=== PATIENT | male | born 1990 | race Caucasian/White ===

== ENCOUNTER → 2021-09-13 | Outpatient (CLI) | payer OTHER ==
[~2021-09-13] MED LIST: CYCLOBENZAPRINE5 M3 PO; LOMOTIL 0.025 M1 TA1 PO; NAPROSYN500 MG PO; NORVASC5 MG PO; ULTRAM50 MG PO; ZOFRAN4 MG PO
[2021-09-13 08:57] LABS: BASO # 0.1 10*3/uL (0.0-0.1); BASO % 1.1 % (0.0-1.0); EOS # 0.5 10*3/uL (0.0-0.4); EOS % 6.9 % (1.0-4.0); HEMATOCRIT 45.8 % (42.0-52.0); LYMPH # 2.2 10*3/uL (1.3-4.4); LYMPH % 33.5 % (27.0-41.0); MEAN CELL VOLUME 88.2 fl (80.0-94.0); MEAN CORPUSCULAR HGB 30.1 pg (27.0-31.0); MEAN CORPUSCULAR HGB CONC 34.1 g/dl (33.0-37.0); MEAN PLATELET VOLUME 9.1 fl (9.6-12.3); MONO # 0.6 10*3/uL (0.1-1.0); MONO % 9.5 % (3.0-9.0); NEUT # 3.2 10*3/uL (2.3-7.9); NEUT % 48.8 % (47.0-73.0); PLATELET COUNT AUTOMATED 281 10*3/uL (130-400); RED BLOOD COUNT 5.19 10*6/uL (4.50-5.90); RED CELL DISTRI WIDTH 11.9 % (0-14.5); WHITE BLOOD COUNT 6.6 10*3/uL (4.8-10.8)
[2021-09-13 09:15] LABS: ALBUMIN 4.1 gm/dl (3.1-4.5); ALKALINE PHOSPHATASE 62 U/L (45-117); BUN 11 mg/dl (7-24); CHLORIDE 109 mmol/L (98-107); CHOLESTEROL 141 mg/dL (<200); LDL CHOLESTEROL 98 mg/dL (9-159); POTASSIUM 4.2 mmol/L (3.5-5.1); SGOT/AST 31 IU/L (3-35); SGPT/ALT 57 U/L (12-78); SODIUM 140 mmol/L (136-145); TOTAL PROTEIN 7.8 gm/dL (6.4-8.2); TRIGLYCERIDES 53 mg/dl (<150)
== END ==
LOC: LAB 08:24
PROVIDERS: ATTEND Nurse Practitioner Primary Care
DX: I10 Essential (primary) hypertension (principal)

== ENCOUNTER 2024-03-04 11:06 | Emergency (ER) | payer OTHER ==
[~2024-03-04] VITALS: Ht 190.5 cm; Wt 154.2 kg
[2024-03-04 11:08] VITALS: BP 136/87
[2024-03-04] MEDS ORDERED: Acetaminophen/Hydrocodone 5 MG/325 MG TABLET PO ONE (11:15)
== END 2024-03-04 13:11 | disposition home or self-care (01) ==
LOC: ED 11:06
DX: M25.512 Pain in left shoulder (principal); R60.0 Localized edema; I10 Essential (primary) hypertension; V89.2XXA Person injured in unspecified motor-vehicle accident, traffic, initial encounter; Y93.89 Activity, other specified; Y92.410 Unspecified street and highway as the place of occurrence of the external cause; Y99.8 Other external cause status

== ENCOUNTER 2024-05-13 13:00 | Emergency (ER) | payer OTHER ==
[~2024-05-13] VITALS: Ht 190.5 cm; Wt 149.7 kg
[2024-05-13 14:35] VITALS: BP 152/87
[2024-05-13] MEDS ORDERED: VALIUM5 MG PO (14:36)
[2024-05-13] MEDS ORDERED: MELOXICAM15 MG PO (14:36)
== END 2024-05-13 14:40 | disposition home or self-care (01) ==
LOC: ED 13:00
DX: M62.830 Muscle spasm of back (principal); I10 Essential (primary) hypertension

== ENCOUNTER 2025-10-29 10:21 | Emergency (ER) | payer BC ==
[~2025-10-29 10:21] MED LIST changes: +MELOXICAM15 MG PO; +VALIUM5 MG PO
[2025-10-29 10:56] VITALS: BP 133/88
[2025-10-29] MEDS ORDERED: Ondansetron Hydrochloride 4 MG TAB PO ONE (11:20)
[2025-10-29] MEDS ORDERED: Ondansetron4 MG PO (11:25)
== END 2025-10-29 12:04 | disposition home or self-care (01) ==
LOC: ED 10:21
DX: R11.2 Nausea with vomiting, unspecified (principal); R19.7 Diarrhea, unspecified; I10 Essential (primary) hypertension